=== PATIENT | male | born 2000 | race Caucasian/White ===

== ENCOUNTER 2019-05-27 14:11 | Emergency (ER) | payer OTHER ==
[~2019-05-27] VITALS: Ht 180.3 cm; Wt 83.6 kg
[2019-05-27] MEDS ORDERED: IBUP-1022 PO (15:38)
[2019-05-27 15:46] VITALS: BP 142/70
--- NOTE | 2019-05-28 07:19 | REP ---
RIGHT ANKLE, FOUR VIEWS: Four views of the right ankle are performed. There is a nondisplaced fracture of the distal fibula. No other fracture or dislocation is seen. There is associated soft-tissue swelling. The ankle mortise is anatomic. Electronically Signed by Eliecer Burrell MD 05/28/2019 05:55 P
== END 2019-05-27 15:48 | disposition home or self-care (01) ==
LOC: M ED 14:11
DX: S82.64XA Nondisplaced fracture of lateral malleolus of right fibula, initial encounter for closed fracture (principal); X50.0XXA Overexertion from strenuous movement or load, initial encounter; Y92.410 Unspecified street and highway as the place of occurrence of the external cause